=== PATIENT | male | born 1955 | race Caucasian/White ===

== ENCOUNTER 2021-01-14 15:22 | Outpatient (REF) | payer BC, MEDICARE, SELFPAY ==
[2021-01-14 16:48] LABS: C Reactive Protein 2.79 mg/dL (< or = 0.50)
[2021-01-14 17:04] LABS: Erythrocyte Sedimentation Rate 25 MM/HR (0-15)
[2021-01-14 17:09] LABS: Thyroid Stimulating Hormone 0.72 uIU/mL (0.32-4.0)
[2021-01-15 09:41] LABS: Lyme Abs Screen <0.90 index
== END 2021-01-14 15:23 | disposition home or self-care (01) ==
LOC: HO.LAB 15:22
PROVIDERS: PCP Internal Medicine Endocrinology, Diabetes & Metabolism; Visit Provider Psychiatry & Neurology Neurology
DX: M35.3 Polymyalgia rheumatica (principal)
CPT/HCPCS: 36415; 82550; 84443; 85652; 86140; 86617; 86618